=== PATIENT | female | born 1985 | race Two or more races ===

== ENCOUNTER 2024-10-01 17:17 | Emergency (ER) | payer OTHER ==
[~2024-10-01] VITALS: Ht 152.4 cm; Wt 80.9 kg
[2024-10-01 17:50] VITALS: TEMP 97.8
[2024-10-01 17:57] VITALS: BP 118/67; PULSE 74; RESP 18; O2SAT 100
[2024-10-01] MEDS: PROPARACAINE HCL 0.5% 15 ML OPHTHALMIC SOLUTION OD ONE (18:55)
[2024-10-01] MEDS: FLUORESCEIN SODIUM 1 MG STRIP OD ONE (18:55)
[2024-10-01] MEDS: DiphenhydrAMINE HCL 25 MG CAPSULE PO ONE (19:34)
== END 2024-10-01 19:47 ==
LOC: EMS 17:17
DX: H10.12 Acute atopic conjunctivitis, left eye (principal); H11.002 Unspecified pterygium of left eye; Z87.442 Personal history of urinary calculi; Z88.1 Allergy status to other antibiotic agents
CPT/HCPCS: 99283

== ENCOUNTER 2025-01-21 14:16 | Emergency (ER) | payer OTHER ==
[~2025-01-21] VITALS: Ht 154.9 cm; Wt 90.1 kg
[2025-01-21 15:17] VITALS: TEMP 98
[2025-01-21 16:48] VITALS: BP 108/65; PULSE 65; RESP 16; O2SAT 98
[2025-01-21] MEDS: ACETAMINOPHEN/CODEINE 300-30 MG TABLET PO ONE (17:13)
[2025-01-21] MEDS: TOBRAMYCIN/DEXAMETHASONE 5 ML OPHTHALMIC SUSPENSION OU ONE (17:42)
== END 2025-01-21 17:47 | disposition home or self-care (01) ==
LOC: EMS 14:16
DX: H10.13 Acute atopic conjunctivitis, bilateral (principal); Z87.442 Personal history of urinary calculi; Z98.890 Other specified postprocedural states; Z90.49 Acquired absence of other specified parts of digestive tract; Z88.1 Allergy status to other antibiotic agents; Z88.6 Allergy status to analgesic agent
CPT/HCPCS: 99283